=== PATIENT | male | born 1985 | race Caucasian/White ===

== ENCOUNTER 2019-05-21 18:41 | Emergency (ER) | payer SELFPAY ==
--- NOTE | 2019-05-21 19:09 | ER Document Report ---
ED Medical Screen (RME) - General Chief Complaint: Dizziness Stated Complaint: DIZZINESS Time Seen by Provider: 05/21/19 19:03 Mode of Arrival: Ambulatory Information source: Patient Notes: Patient is a 34-year-old male presented to the emergency department with multiple vague complaints today. Patient reports dizziness, syncopal episodes at home, all over body aches and blurred vision that is been ongoing for several weeks and does report he works out in the heat.. Patient has not sought medical advice for this. He denies any nausea, vomiting or diarrhea. Exam: Lung sounds clear and equal bilaterally. Heart sounds S1-S2 is present with no ectopy noted. No focal neurological deficits noted. I have greeted and performed a rapid initial assessment of this patient. A comprehensive ED assessment and evaluation of the patient, analysis of test results and completion of the medical decision making process will be conducted by additional ED providers. I have specifically instructed the patient or family members with the patient to immediately return to any nursing staff should anything change in the patient's condition or with their chief complaint. This medical record was dictated with voice recognizing software. There may be grammatical, syntax errors that are unintended. TRAVEL OUTSIDE OF THE [place] IN LAST 30 DAYS: No - Related Data Allergies/Adverse Reactions: No Known Allergies Allergy (Verified 05/21/19 18:44) Past Medical History - Social History Frequency of alcohol use: None Drug Abuse: None Pulmonary Medical History: Reports: Hx Bronchitis, Hx Pneumonia Renal/ Medical History: Denies: Hx Peritoneal Dialysis Past Surgical History: Reports: Hx Oral Surgery, Hx Tonsillectomy - Immunizations Immunizations up to date: No Hx Diphtheria, Pertussis, Tetanus Vaccination: No Physical Exam - Vital signs Vitals: Temp Pulse Resp BP Pulse Ox 98.7 F 94 18 139/90 H 99 05/21/19 18:46 05/21/19 18:46 05/21/19 18:46 05/21/19 18:46 05/21/19 18:46 Course - Vital Signs Vital signs: Temp Pulse Resp BP Pulse Ox 98.7 F 94 18 139/90 H 99 05/21/19 18:46 05/21/19 18:46 05/21/19 18:46 05/21/19 18:46 05/21/19 18:46
[2019-05-21] MEDS ORDERED: NORMAL SALINE 1000 ML 1,000 ML IV ONE (19:15)
[2019-05-21 19:41] LABS: ABSOLUTE BASOPHILS # (AUTO) 0.1 10^3/uL (0.0-0.2); ABSOLUTE EOSINOPHILS # (AUTO) 0.1 10^3/uL (0.0-0.6); ABSOLUTE LYMPHOCYTES (AUTO) 4.1 10^3/uL (0.5-4.7); ABSOLUTE MONOCYTES (AUTO) 0.8 10^3/uL (0.1-1.4); BASOPHILS % (AUTO) 0.4 % (0-2); EOSINOPHILS % (AUTO) 0.8 % (0-6); HEMATOCRIT 44.3 % (37.9-51.0); HEMOGLOBIN 15.1 g/dL (13.5-17.0); LYMPHOCYTES % (AUTO) 27.3 % (13-45); MEAN CORPUSCULAR HEMOGLOBIN 30.2 pg (27.0-33.4); MEAN CORPUSCULAR HGB CONC 34.1 g/dL (32.0-36.0); MEAN CORPUSCULAR VOLUME 89 fl (80-97); MONOCYTES % (AUTO) 5.1 % (3-13); PLATELET COUNT 320 10^3/uL (150-450); RED CELL DISTRIBUTION WIDTH 14.2 % (11.5-14.0); SEGMENTED NEUTROPHILS % (AUTO) 66.4 % (42-78); TOTAL CELLS COUNTED % (AUTO) 100 %
[2019-05-21 19:58] LABS: ALBUMIN 4.9 g/dL (3.5-5.0); ALKALINE PHOSPHATASE 80 U/L (38-126); ANION GAP 12 (5-19); ASPARTATE AMINO TRANSFERASE 28 U/L (17-59); BILIRUBIN,DIRECT 0.5 mg/dL (0.0-0.4); BLOOD UREA NITROGEN 12 mg/dL (7-20); CALCIUM 10.2 mg/dL (8.4-10.2); CARBON DIOXIDE 25 mmol/L (22-30); CHLORIDE 104 mmol/L (98-107); CREATINE KINASE 203 U/L (55-170); GLUCOSE 78 mg/dL (75-110); POTASSIUM 4.1 mmol/L (3.6-5.0); TOTAL PROTEIN 8.3 g/dL (6.3-8.2)
[2019-05-21] MEDS ORDERED: DEXTROSE 50%-WATER 25 GM/50 ML DISP.SYRIN IV ONE (20:16)
--- NOTE | 2019-05-21 20:36 | RADIOLOGY REPORT (SQ) ---
EXAM DESCRIPTION: CT HEAD WITHOUT INTRAVENOUS CONTRAST CLINICAL HISTORY: Acute mental status change. COMPARISON: None TECHNIQUE: CT of the head was performed without intravenous contrast .This exam was performed according to our departmental dose-optimization program, which includes automated exposure control, adjustment of the mA and/or KV according to the patient's size and/or use of iterative reconstruction technique. FINDINGS: There is no intracranial hemorrhage, midline shift, mass effect or acute focal infarct. There is good boles/white matter differentiation. The ventricular system is normal. Visualized mastoid air cells within normal limits. The paranasal sinuses demonstrate mild to moderate ethmoid sinus disease and minimal sphenoid sinus disease.. There is no visualization of calvarial or skull base fractures. IMPRESSION: Non prominent ethmoid and sphenoid sinus disease. There are no acute intracranial findings.
[2019-05-21 20:51] LABS: APPEARANCE,URINE SLIGHTLY-CLOUDY; BILIRUBIN,URINE SMALL (NEGATIVE); COLOR,URINE AMBER; GLUCOSE, URINE NEGATIVE (NEGATIVE); KETONES,URINE 80 mg/dL (NEGATIVE); LEUKOCYTE ESTERASE,URINE NEGATIVE (NEGATIVE); NITRITE,URINE NEGATIVE (NEGATIVE); PROTEIN,URINE NEGATIVE (NEGATIVE); URINE SPECIFIC GRAVITY 1.029
--- NOTE | 2019-05-21 21:39 | ER Document Report ---
Entered by SHRUTHI SÁNCHEZ SCRIBE 05/21/[id number] Acting as scribe for:NAHUM BUSH DO ED Dizziness/Weakness - General Chief Complaint: Dizziness Stated Complaint: DIZZINESS Time Seen by Provider: 05/21/19 19:03 Mode of Arrival: Ambulatory Notes: 34 year old male that presents to the emergency department today with complaints of dizziness, lower back pain, and intermittent confusion for the past week. 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 Patient states he has had a few syncopal events over the last week that always start with a "leon of heat" and then the next thing he remembers is waking up. Patient denies dysuria, nausea, vomiting, headaches, and fevers. TRAVEL OUTSIDE OF THE [place] IN LAST 30 DAYS: No - Related Data Allergies/Adverse Reactions: No Known Allergies Allergy (Verified 05/21/19 18:44) Past Medical History - General Information source: Patient - Social History Smoking Status: Current Every Day Smoker Cigarette use (# per day): Yes Frequency of alcohol use: None Drug Abuse: None Lives with: Family Family History: None Patient has suicidal ideation: No Patient has homicidal ideation: No Pulmonary Medical History: Reports: Hx Bronchitis, Hx Pneumonia Past Surgical History: Reports: Hx Oral Surgery, Hx Tonsillectomy - Immunizations Immunizations up to date: No Hx Diphtheria, Pertussis, Tetanus Vaccination: No Review of Systems - Review of Systems Constitutional: denies: Fever EENT: No symptoms reported Cardiovascular: See HPI, Dizziness Respiratory: No symptoms reported Gastrointestinal: denies: Nausea, Vomiting Genitourinary: denies: Dysuria Male Genitourinary: No symptoms reported Musculoskeletal: See HPI, Back pain Skin: No symptoms reported Hematologic/Lymphatic: No symptoms reported Neurological/Psychological: See HPI, Confusion. denies: Headaches -: Yes All other systems reviewed and negative Physical Exam - Vital signs Vitals: Temp Pulse Resp BP Pulse Ox 98.7 F 94 18 139/90 H 99 05/21/19 18:46 05/21/19 18:46 05/21/19 18:46 05/21/19 18:46 05/21/19 18:46 Interpretation: Normal - General General appearance: Appears well, Alert - HEENT Head: Normocephalic, Atraumatic Eyes: Normal Pupils: PERRL Mucous membranes: Dry - Respiratory Respiratory status: No respiratory distress Chest status: Nontender Breath sounds: Normal Chest palpation: Normal - Cardiovascular Rhythm: Regular Heart sounds: Normal auscultation Murmur: No - Abdominal Inspection: Normal Distension: No distension Bowel sounds: Normal Tenderness: Nontender Organomegaly: No organomegaly - Back Back: Normal, Nontender - Extremities General upper extremity: Normal inspection, Nontender, Normal color, Normal ROM, Normal temperature General lower extremity: Normal inspection, Nontender, Normal color, Normal ROM, Normal temperature, Normal weight bearing. No: Brunilda's sign - Neurological Neuro grossly intact: Yes Cognition: Normal Orientation: AAOx4 Peter Coma Scale Eye Opening: Spontaneous [place] Coma Scale Verbal: Oriented [place] Coma Scale Motor: Obeys Commands Peter Coma Scale Total: 15 Speech: Normal Motor strength normal: LUE, RUE, LLE, RLE Sensory: Normal - Psychological Associated symptoms: Anxious - Skin Skin Temperature: Warm Skin Moisture: Dry Skin Color: Normal Course - Re-evaluation Re-evalutation: 05/21/19 21:18 Patient is a 34-year-old male who comes in complaining of lightheadedness, intermittent tingling. Patient works outside all day. States that he drinks 20 bottles of water a day. Patient's blood sugar here 61. He has not felt like eating last 2 days because of the heat. He is 80+ ketones in his urine and CBC is hemoconcentrated. Patient will be fluid resuscitated and reevaluated. 22:[address] Jenkins. Fluids and reevaluation pending. - Vital Signs Vital signs: Temp Pulse Resp BP Pulse Ox 98.7 F 94 18 139/90 H 99 05/21/19 18:46 05/21/19 18:46 05/21/19 18:46 05/21/19 18:46 05/21/19 18:46 - Laboratory Result Diagrams: 05/21/19 19:30 05/21/19 19:30 Laboratory results interpreted by me: 05/21/19 05/21/19 05/21/19 19:30 19:30 20:39 WBC 15.0 H RDW 14.2 H Absolute Neutrophils 10.0 H Direct Bilirubin 0.5 H Creatine Kinase 203 H Total Protein 8.3 H Urine Ketones 80 H Urine Bilirubin SMALL H Urine Urobilinogen 4.0 H - Diagnostic Test Radiology reviewed: Reports reviewed Discharge - Discharge Clinical Impression: Dehydration, Hypoglycemia Condition: Stable Disposition: HOME, SELF-CARE Scribe Attestation: 05/21/19 21:39 I personally performed the services described in the documentation, reviewed and edited the documentation which was dictated to the scribe in my presence, and it accurately records my words and actions. I personally performed the services described in the documentation, reviewed and edited the documentation which was dictated to the scribe in my presence, and it accurately records my words and actions.
[2019-05-21] MEDS: NORMAL SALINE 1000 ML 1,000 ML IV PRN ×2 (21:44→21:58)
--- NOTE | 2019-05-21 21:48 | RADIOLOGY REPORT (SQ) ---
XR CHEST 1 VIEW CLINICAL STATEMENT: AMS COMPARISON: 11/16/2012. FINDINGS: Cardiomediastinal silhouette is within normal limits. There is no focal lung consolidation or pleural effusion. No evidence of pulmonary edema or pneumothorax. IMPRESSION: No acute cardiopulmonary disease.
[2019-05-22 00:15] VITALS: BP 109/71
--- NOTE | 2019-05-22 11:29 | EKG REPORT ---
SEVERITY:- ABNORMAL ECG - SINUS RHYTHM INCOMPLETE RIGHT BUNDLE BRANCH BLOCK : Confirmed by: Abimbola Casanova 22-May-2019 11:29:09
== END 2019-05-22 00:46 | disposition home or self-care (01) ==
LOC: ER 18:41
DX: E86.0 Dehydration (principal); E16.2 Hypoglycemia, unspecified; R42 Dizziness and giddiness; M54.5 Low back pain; R41.0 Disorientation, unspecified; R55 Syncope and collapse; R20.2 Paresthesia of skin; F17.210 Nicotine dependence, cigarettes, uncomplicated
CPT/HCPCS: 93005; 36415; 82550; 84443; 85025; 80053; 81001; 84484; 83605; 71045; 70450; 93010; J3490; J7030; 96361; 96374; 99284